=== PATIENT | female | born 1985 | race Caucasian/White ===

== ENCOUNTER → 2018-06-07 | Outpatient (CLI) | payer OTHER ==
[~2018-06-07] MED LIST: Cleocin HCl150 MG PO; IBUP600 PO; IBUP800 PO; NAPR500; NEOPOLHCSU LEFTEAR; Norco 5-325 Ta1 EACH PO; Percocet 5-3251 EACH PO
[2018-06-08 15:08] LABS: HPV 16 Negative (Negative); HPV 18 Negative (Negative); HPV OTHER HR TYPES Negative (Negative)
== END ==
LOC: LAB 14:05 → LAB SHORT 14:05
PROVIDERS: Registered Nurse Community Health
DX: Z12.4 Encounter for screening for malignant neoplasm of cervix (principal)
CPT/HCPCS: 87624; G0123

== ENCOUNTER 2020-10-27 06:18 | Day surgery (SDC) | payer OTHER ==
[~2020-10-27] VITALS: Ht 154.9 cm; Wt 56.0 kg
[~2020-10-27 06:18] MED LIST changes: +DILT120ERA PO
--- NOTE | 2020-10-27 09:34 | NUR ---
PT RETURNED TO RECOVERY ROOM IN BED AT 0915. [facility] PACEMAKER CHANGE-OUT SITE NO HEMATOMA, NO BLEEDING AND INTACT DRESSING IN PLACE. PT DENIES CP. PT PROVIDED BREAKFAST. CALL LIGHT IN REACH. [facility] PAC[facility] REP IN ROOM.
--- NOTE | 2020-10-27 10:23 | NUR ---
NO CHANGES TO [facility]ACW PACEMAKER CHANGE-OUT SITE. DISCHARGE INSTRUCTIONS REVIEWED ALL QUESTIONS ANSWERED. 20 G IV REMOVED FROM LEFT AC WITH INTACT CANNULA. PT ESCORTED OUT VIA WHEELCHAIR ESCORT.
== END 2020-10-27 10:15 | disposition home or self-care (01) ==
LOC: MHTC 06:18
DX: Z45.010 Encounter for checking and testing of cardiac pacemaker pulse generator [battery] (principal); R00.1 Bradycardia, unspecified; I07.1 Rheumatic tricuspid insufficiency; I73.00 Raynaud's syndrome without gangrene; F17.210 Nicotine dependence, cigarettes, uncomplicated; I48.91 Unspecified atrial fibrillation; Z88.1 Allergy status to other antibiotic agents; Z88.0 Allergy status to penicillin; Z88.2 Allergy status to sulfonamides
CPT/HCPCS: 33228; 99152; 99153; C1781; C1785; J1644; J2250; J3010; J3370; J7030; J7040